=== PATIENT | female | born 1980 ===

== ENCOUNTER 2020-10-14 09:19 | Day surgery (SDC) | payer OTHER | END 2020-10-14 15:25 | disposition home or self-care (01) | LOC: AMB-ENDOS 09:19 → CIR.AMB 14:00 → AMB-ENDOS 15:25 | PROVIDERS: ATTEND Surgery | DX: K62.89 Other specified diseases of anus and rectum (principal); Z20.822 Contact with and (suspected) exposure to COVID-19 ==